=== PATIENT | female | born 1970 | race African-American/Black ===

== ENCOUNTER 2019-02-06 20:28 | Observation (INO) ==
[2019-02-07 01:10] LABS: BASO# 0.05 X1000 (0.0-0.2); BASO% 0.9 % (0.0-0.8); EOS# 0.08 X1000 (0.0-0.7); EOS% 1.5 % (0.0-10.0); HEMATOCRIT 40.7 % (37.0-47.0); HEMOGLOBIN 13.1 g/dL (12.0-16.0); LYMPH# 2.42 X1000 (1.2-3.4); LYMPH% 44.2 % (20.5-51.1); MCH 27.8 PG (27-31); MCHC 32.2 g/dL (33-37); MCV 86.4 FL (81-99); MONO# 0.37 X1000 (0.11-0.59); MONO% 6.8 % (1.7-9.3); MPV 10.1 FL (7.4-10.4); NEUT# 2.56 X1000 (1.4-6.5); NEUT% 46.6 % (42.2-75.2); PLT 317 X1000 (130-400); RBC 4.71 XMIL (4.2-5.4); WBC 5.48 X1000 (4.8-10.8)
[2019-02-07 01:34] LABS: AGAP 1; ALB/GLOB RATIO 1.3; ALBUMIN 4.7 g/dL (3.5-5.0); ALKALINE PHOSPHATASE 60 U/L (32-104); BUN 13 mg/dL (8-22); CALCIUM 8.9 mg/dL (8.8-10.2); CHLORIDE 101 mmol/L (98-107); COSMO 275; CREATININE 0.7 mg/dL (0.5-0.9); ESTIMATED GFR > 60; GLUCOSE 110 mg/dL (70-104); GOT 12 U/L (10-30); GPT 10 U/L (10-36); LIPASE 51 U/L (13-60); POTASSIUM 3.6 mmol/L (3.5-5.1); SODIUM 137 mmol/L (136-145); TCO2 35 mmol/L (25-35); TOTAL BILIRUBIN 0.32 mg/dL (0.20-1.00); TOTAL PROTEIN 8.2 g/dL (6.3-8.3)
--- NOTE | 2019-02-07 05:32 | PROVIDER DOCUMENTATION ---
This chart was entered by Mason Jones Scribe, acting as scribe for Aleksey Meyers MD. HPI-Abdominal Pain/GI Problem - General Chief Complaint: General Adult Stated Complaint: ABD PAIN Time Seen by Provider: 02/06/19 22:53 Source: patient Allergies/Adverse Reactions: Patient Allergies Allergy/AdvReac Type Severity Reaction Status Date / Time adhesive tape AdvReac Unknown Verified 02/06/19 21:40 - History of Present Illness-ABD Nature of Presenting Problems: Pt is a 48 y/o F presents to the ED with abdominal pain after going to an urgent care and brings in a CD of xray with her. She says she was sent from the urgent care for fa cough. Pt denies N/V/D. Abdominal Pain Onset Location: reports: generalized abdomen Pain Radiation: reports: no radiation Quality of Pain: reports: aching Severity in ED: reports: mild Onset/Duration: reports: this morning Timing: reports: still present (chronic) Activities at Onset: reports: none Exposure to sick contacts?: No Associated Symptoms: reports: cough. denies: diarrhea, fever/chills, shortness of breath, vomiting, trouble walking Review of Systems - Adult - REVIEW OF SYSTEMS - ADULT Constitutional: denies: chills, fever Eyes: reports: no symptoms reported Ears, Nose, Mouth & Throat: reports: no symptoms reported Cardiovascular: denies: edema, palpitations Respiratory: reports: cough. denies: shortness of breath, wheezing Gastrointestinal: reports: abdominal pain. denies: constipation, diarrhea, nausea, vomiting Genitourinary: reports: no symptoms reported Musculoskeletal: reports: no symptoms reported Integumentary: reports: no symptoms reported Neurological: reports: no symptoms reported Psychiatric: reports: no symptoms reported Endocrine: reports: no symptoms reported Hematologic/Lymphatic: reports: no symptoms reported Allergic/Immunologic: reports: no symptoms reported All Other Systems: Reviewed and Negative Past History - Adult - PAST MEDICAL HISTORY-ADULT Review of Records: reports: Old Records Reviewed, Nursing Assessment Review, Medications Reviewed - SOCIAL HISTORY Smoking: non-smoker Living Situation: family Physical Exam-General - PHYSICAL EXAM-ADULT Initial Vital Signs Reviewed: Yes - CONSTITUTIONAL General Appearance: alert, no apparent distress - EYES Eyes: PERRL/EOMI, pink conjunctivae - HEAD, EARS, NOSE, MOUTH & THROAT HENMT: moist mucous membranes, normal ENT inspection - NECK Neck: non-tender, full range of motion, supple, normal inspection - RESPIRATORY Respiratory: lungs clear, normal breath sounds, no pleuratic chest pain, no respiratory distress - CARDIOVASCULAR Cardiovascular: normal peripheral pulses, regular rate, rhythm - GASTROINTESTINAL (ABDOMEN) Abdominal Exam: normal bowel sounds, non tender, soft - MUSCULOSKELETAL Back Exam: normal inspection, no CVA tenderness, no vertebral tenderness Extremity: normal range of motion, non-tender, normal gait, normal inspection - SKIN Integumentary: normal color, normal turgor, warm/dry - NEUROLOGIC Neurologic: grossly normal, no motor/sensory deficits - PSYCHIATRIC Psych/Mental Status: normal mood/affect, normal thought content, normal thought process, oriented x 3 Progress - PLAN OF CARE/RESULTS Progress/Plan/Lab Results: Vital Signs - 8 hr 02/06/19 20:40 Temperature 97.7 F Pulse Rate 72 Respiratory Rate 14 Blood Pressure 182/97 O2 Sat by Pulse Oximetry 100 Orders Category Date Time Status cxr [CHEST-2 VIEWS] [RAD] Stat Exams 02/06/19 23:[address] shows distention of large colon with narrowing at sigmoid colon, will admit Result Diagrams: 02/07/19 00:57 02/07/19 00:57 Departure - Departure Date of Disposition Decision: 02/07/19 Time of Disposition Decision: 05:30 DIAGNOSIS: Large bowel obstruction Disposition: ADMITTED INPATIENT 09 Certified Medical Emergency: Emergent Condition: Stable Referrals and Follow-Ups: Mariposa Bejarano MD [Primary Care Provider] - - Critical Care Note This patient required my direct & personal management of CC.: No Attestation - Physician/ NIRANJAN Attestation Patient care was provided by Advanced Practice Provider:: No The physician spent face to face time with patient:: Yes Advanced Practice Provider documentation review:: Supervising physician onsite and consulted in the evaluation and care of this patient. The physician did have a face to face encounter with the patient. This chart was documented by the indicated scribe, (Mason Jones Scribe) and accurately reflects the services I performed and decisions made by me, Aleksey Meyers MD, as attested by the provider's signature.
[2019-02-07] MEDS ORDERED: NS + KCL 20 MEQ 1,000 ML IV ONE (05:56)
[2019-02-07] MEDS ORDERED: DULCOLAX PR ONE (05:56)
[2019-02-07] MEDS ORDERED: CITRATE OF MAGNESIA PO ONE (05:56)
[2019-02-07] MEDS ORDERED: PERICOLACE PO ONE (05:57)
--- NOTE | 2019-02-07 06:17 | Diag Imaging Result Doc PS360 ---
CHEST-2 VIEWS - 02/06/2019 INDICATION: cough, abnormal finding on cxr at urgent care [facility] COMPARISON: None FINDINGS: The heart size is borderline enlarged. Pulmonary vascularity is normal. Tiny calcified granulomas in the left upper lobe and left hilum. No focal infiltrates, pneumothorax, or pleural effusion. IMPRESSION: Borderline enlargement of the heart shadow. Electronically signed by Noah Rodriguez 02/07/2019 6:14 AM
[2019-02-07] MEDS ORDERED: TYLENOL PO PRN (07:04)
[2019-02-07] MEDS ORDERED: ZOFRAN IV PRN (07:04)
--- NOTE | 2019-02-07 08:17 | Diag Imaging Result Doc PS360 ---
EXAM: CT ABD/PELVIS W/PO AND IV CON INDICATION: r/o SBO, dilated loops of bowl on CXR TECHNIQUE: This exam was performed using automated exposure control, adjustment of mA or kV according to patient size, and/or use of iterative reconstruction technique. COMPARISON: None. FINDINGS: There is a small calcified granuloma at the left lung base. There is a 2.3 x 1.6 cm heterogeneous hypoechoic focus involving the right hepatic lobe abutting the falciform ligament, very likely focal fatty infiltration at this is a common place for this. There are a few tiny hypodensities involving the right hepatic lobe that are nonspecific and too small to characterize but probably represent tiny cysts. The gallbladder, spleen, pancreas, and adrenal glands are unremarkable. The kidneys and urinary bladder are unremarkable. There is evidence of a prior hysterectomy. The appendix is normal. There is significant gaseous distention of the proximal and mid sigmoid colon and there is some distention of the distal descending colon. There is a transition point along the left pelvic sidewall where there is a long segment of collapsed sigmoid colon (see image 89, series 2). Long segment stricture or even sigmoid volvulus cannot completely be excluded. There is a small amount of stool in the rectum. There is abundant stool in the right colon. There is no evidence of small bowel obstruction. No focal bowel wall thickening is identified. The remainder of the GI tract is essentially unremarkable. IMPRESSION: 1.Significant gaseous distention mainly involving the proximal sigmoid colon with a transition in the pelvis where there is collapse of the sigmoid colon distal to this. Long segment stricture or even sigmoid volvulus cannot completely be excluded. 2.Other incidental/nonacute findings detailed above. Electronically signed by Lj Wolfe 02/07/2019 8:15 AM
--- NOTE | 2019-02-07 08:48 | HISTORY AND PHYSICAL ---
ADDENDUM HISTORY OF PRESENT ILLNESS: Ms. Sinai Ren went to the urgent care to check persistent cough and upper respiratory symptoms 5 weeks after [place] the flu. On arrival there they did a chest film and they noticed she had distended loops of bowel and sent her to the ER. Repeat chest film confirmed the same thing. CT scan showed dilated loops of bowel with lots of stool and possible sigmoid stricture. She is being admitted for evaluation of possible sigmoid stricture. Her potassium is 3.6 and she will be given fluids with 20 mEq of potassium to decrease risk of ileus. She denies any recent use of any new medication. She used to be on losartan/hydrochlorothiazide, but has been off this for several weeks. We are going to give her a Dulcolax suppository and some upper GI laxatives to induce defecation so that she may undergo at least a flexible sigmoidoscopy for now. We will consult GI to see her. Otherwise her vital signs are stable. Abdomen does feel mildly distended in the lower part, but no peritoneal signs, mass, or organomegaly. Bowel sounds surprisingly are normal. Rest of her exam is benign. cc: Terra García MD
--- NOTE | 2019-02-07 10:26 | HISTORY AND PHYSICAL ---
PATIENT'S PRIMARY CARE PROVIDER: Mariposa Bejarano MD. CHIEF COMPLAINT: Abdominal pain. HISTORY OF PRESENT ILLNESS: Ms. Ren is a 48-year-old -[place] female, who states that she presented to urgent care earlier in the day on 02/06/2019 due to a persistent cough that she has had since having the flu about 5 weeks ago. She states that when they performed her chest x- ray that they did see an abnormal finding and sent her to the ER for further evaluation. The patient states that she has not had any fever, body aches, or chills, though a couple of nights ago did have an episode of diaphoresis, though she reported during this episode she did not feel flushed or chilled. Denies any chest pain. She does report that she gets shortness of breath of coughing episodes though had not had any other shortness of breath otherwise. She has been reporting that for quite some time now she has been having abdominal bloating. The patient states she does have frequent problems with constipation. She states that since yesterday she has been having intermittent abdominal cramping. She states that actually rubbing her belly makes the pain better though she has not noticed anything that really made it worse. She has had some occasional nausea though denies any vomiting. She reports her last bowel movement was yesterday, though it was not a very good bowel movement. Though, she denied having to strain to have a bowel movement. She denies any hematochezia or melena. She denies any other symptoms at this time. She also denies any previous history of having bowel obstruction or any other abdominal surgeries except for her x2 and her hysterectomy. The patient did report that she had a colonoscopy approximately 5 years ago and was not made aware of any abnormal finding. On evaluation in the ER, the patient's abdomen did appear distended. She did have some generalized tenderness though was reporting that her abdominal pain and cramping was more in the left lower quadrant area. Bowel sounds were normoactive. They did perform a chest x-ray, which did show borderline enlargement of the heart shadow and there were some tiny calcified granulomas in the left upper lobe and hilum, though no infiltrates, pneumothorax, or pleural effusion were noted. Though on x-ray as well you could see some dilated loops of the bowel. Given this, they did perform a CT abdomen and pelvis with contrast that showed that she had multiple air-filled loops of distended large bowel involving the transverse, descending, and proximal sigmoid colon. There was a focal long segment of decompressed area of the sigmoid colon along with pelvic side wall, stricture of the sigmoid colon may be present in this region. Given these findings, the patient has been placed for admission for further treatment and evaluation. REVIEW OF SYSTEMS: A 14-point review of systems was conducted with the patient and all were negative except for pertinent positives mentioned above in the HPI. PAST MEDICAL HISTORY: 1. Hypertension, though the patient states at this time she is not taking medication for this. Her previous medication has been recalled at this time, though she states she only took this as needed. 2. Anxiety. 3. Frequent constipation. PAST SURGICAL HISTORY: 1. Hysterectomy. 2. x2. SOCIAL HISTORY: The patient denies any tobacco, alcohol, or illicit drug use. FAMILY HISTORY: Positive for her father having a history of diabetes mellitus, and her mother having a history of hypertension and high cholesterol. Her maternal grandmother did have a history of ovarian cancer. ALLERGIES: The patient has allergies to adhesive tape. HOME MEDICATIONS: We are awaiting the patient's complete home medication list to be updated and verified, though, at this time she states she takes a losartan combination medicine which may be possibly losartan/HCTZ and estradiol. Once her list has been obtain, we will address her home medications. DIAGNOSTIC DATA/LABORATORY RESULTS: White blood cell count is 5.48, hemoglobin 13.1, hematocrit 40.7, platelet count is 317. Sodium is 137, potassium 3.6, chloride 101, serum bicarb of 35, BUN 13, creatinine 0.7, GFR greater than 60, glucose 110, calcium 8.9. Liver function tests are within normal limits. Lipase 51, plasma lactate 0.5. PHYSICAL EXAMINATION: VITAL SIGNS: Heart rate 62, respirations 17, blood pressure 137/88, oxygen saturation is 100% on room air. GENERAL: Ms. Ren is a pleasant 48-year-old -[place] female, who is resting on the ER stretcher. She was in no acute distress. She was awake, alert, and able to answer questions appropriately. HEENT: Head is atraumatic, normocephalic. Pupils are equal, round, reactive to light, were 3 mm bilaterally and brisk. Oral mucosa is moist. Oropharynx is clear. NECK: Supple, trachea midline. CARDIOVASCULAR: The patient has normal S1 and S2, no murmurs, gallops, or rubs appreciated, with a regular rate and rhythm. PULMONARY: The patient has symmetrical chest expansion bilaterally. Lung sounds were clear to auscultation in bilateral full marshall. ABDOMEN: Soft, but does appear distended. She had some generalized tenderness noted upon palpation, though she reports that her worst pain is in the left lower quadrant. Bowel sounds are present and were normoactive. INTEGUMENTARY: The patient's skin color is normal for her race and dry and intact. EXTREMITIES: No cyanosis, clubbing, or edema noted. Pulse, motor, and sensory were intact in all extremities. Radial and pedal pulses were 2+ bilaterally. NEUROLOGICAL: The patient is alert and oriented to person, place, time, and situation. There were no focal neurological deficits noted. ASSESSMENT AND PLAN: 1. Colonic ileus. Given this as well as the patient does have constipation noted, we will go ahead and start her with some magnesium citrate, Doris-Colace, as well as a Dulcolax suppository. She will be n.p.o. at this time until she is evaluated by Gastroenterology. We have placed a consult with them and will await their evaluation and further recommendations for management. We have also gone ahead and placed her with some gentle fluid hydration with normal saline with 20 KCl at a rate of 100 mL/hour, and we are awaiting a magnesium level as well. Will continue to follow. 2. History of hypertension. At this time, the patient's blood pressure is within normal limits. We will continue to monitor this and implement antihypertensives as necessary. 3. Deep venous thrombosis prophylaxis will be provided with sequential compression devices. The patient has been placed on the Medical floor with telemetry. She will have vital signs q.8 hours with strict intake and output. Further orders and recommendations pending hospital course, diagnostic studies, and physician evaluation. Dictated by DEVANG Patel for Terra García MD cc: Terra García MD
[2019-02-07] MEDS ORDERED: DESYREL PO PRN (15:39)
--- NOTE | 2019-02-07 17:10 | PROGRESS NOTE ---
DATE: 02/07/2019 INTERVAL HISTORY: Ms. Ren was admitted for constipation and CT scan of the abdomen and pelvis suggestive of possible sigmoid stricture. She has had liquidy bowel movements since coming to the hospital. She has been receiving her stool softeners, including bisacodyl suppository, magnesium citrate and senna. Gastroenterology has been consulted as well. SUBJECTIVE: The patient denies any known rectal trauma. She denies any colonoscopy in the past or known history of cancer or family history of cancer. VITALS: Currently: Temperature 98.9, pulse 68, blood pressure 135/78, respiratory rate 18, 100% saturation on room air. PHYSICAL EXAMINATION: General: Does not appear in any acute distress. Oral cavity is moist. Lungs: Air entry bilaterally equal. No wheeze, rhonchi, crackles. Cardiovascular: S1, S2 normal. No murmur, rub or gallop. Abdomen: Soft, nontender, except mild discomfort in the left lower quadrant. Active bowel sounds. No lower extremity edema. LABS: Unremarkable with normal hemoglobin, hematocrit, platelet and normal kidney function. ASSESSMENT AND PLAN: 1. Severe constipation. Follow up with TSH to rule out hypothyroidism. 2. Colonic ileus. The patient has had a bowel movement .We will follow up with repeat abdominal x-ray. Accordingly, will appreciate Gastroenterology recommendation about need for flexible sigmoidoscopy to evaluate the stricture further. 3. History of insomnia. Continue home trazodone. 4. History of total hysterectomy. I will hold off adding estrogen at the moment. We will add back as tolerated. 5. Disposition: Patient remains inside the hospital as we await further GI recommendation and possible scope. Plan of care discussed with her. All of her questions have been answered. cc: Harpal Tello MD [facility]
[2019-02-07] MEDS ORDERED: PERICOLACE PO SCH (21:00)
--- NOTE | 2019-02-07 21:34 | GASTROENTEROLOGY CONSULTATION ---
DATE: 02/07/2019 CONSULTING PHYSICIAN: Dr. Tello. REASON FOR CONSULT: Constipation. HISTORY OF PRESENT ILLNESS: This is a 48-year-old female who has history of hypertension and has been in good health. Recently, she had contracted flu with upper respiratory symptoms. Most of her symptoms resolved except for cough. She was evaluated at a local urgent care for her cough and apparently had some imaging done which showed dilated or distended bowels. She was sent to the emergency room for further evaluation and treatment. The patient had a CT scan of the abdomen done which showed dilated colon where there was a question of possible stricture. She was also found to have low potassium, albeit lower normal. She was given potassium, and she has received a good bit of laxative since admission. Since admission, she had 3 bowel movements and she feels better. She has not had any abdominal pain or abdominal cramps. She is feeling hungry and wants to eat. She denied any fever or chills. Has not had any headache or dizziness. Her cough, although not completely gone, has improved. She denies any chest pain, shortness of breath, or palpitations. Has had no abdominal cramps or abdominal pain. She is resting comfortably. When she had 3 bowel movements in the hospital, she did not notice any blood or mucus in her stool. She has never had endoscopic evaluation of her bowels. PAST MEDICAL HISTORY: Nothing significant except for hypertension and anxiety. PAST SURGERY: She has had hysterectomy and C-sections. MEDICATIONS: Prior to hospitalization, she was on trazodone and estradiol. ALLERGIES: No known drug allergies. SOCIAL HISTORY: She is and has 3 children. She does not smoke. Does not drink. Does not use illicit drugs. FAMILY HISTORY: No history of colon cancer, stomach cancer, pancreatic cancer, kidney disease, or colitis in the family. REVIEW OF SYSTEMS: As per HPI as above. PHYSICAL EXAMINATION: General appearance: A very pleasant, female. She is lying in bed. She is conscious, alert. Appeared to be in no distress. Vital signs: Temperature 98.4 degrees, pulse is 68 per minute, breathing 18, blood pressure was 138/80. HEENT: Head is atraumatic, normocephalic. Eyes: Conjunctivae are normal. Sclerae anicteric. Nose: Nares are patent, no discharge noted. Mouth: Buccal mucosa is moist. Throat is normal. Neck: Supple. No lymphadenopathy or thyromegaly noted. Chest: Bilaterally symmetrical. It is moving with respirations. Breath sounds audible bilaterally. No rhonchi or crepitations could be heard. Heart: S1, S2 audible. No murmur could be appreciated. Abdomen: Full and soft. It is nontender. I could not appreciate any mass or visceromegaly, and the abdomen did not appear to be distended. Rectal exam: Deferred at this time. Extremities: No pedal edema, cyanosis, or clubbing was noted. Central nervous system: Grossly intact. No sensory or motor deficit noted. LABORATORIES: Reviewed, which showed normal CBC and CMP except potassium was on the lower side of normal that is 3.6. IMAGING STUDIES: CT scan of the abdomen and pelvis was reviewed, which showed dilated loops of large bowel and gaseous distention. She did have some stool in the right side of the colon. There was question of possible stricture or volvulus involving the distal colon. IMPRESSION: Constipation with distended colon. Since admission, she has had 3 large bowel movements and she feels better. She has not had any abdominal pain or abdominal cramps. I would continue her on laxatives. I have started her on Doris-Colace 2 every night. Start her on a full liquid diet and follow. In the meantime, I will get an x-ray abdomen with Gastrografin enema to evaluate the distal colon which may have a stricture and that may require endoscopic evaluation. Endoscopy at this point would be difficult because of the inability to prep the colon, and if it is a volvulus, the Gastrografin enema will resolve the volvulus as well. Depending on response of the imaging studies, further plans will be made. I will follow with you. cc: MD Mariposa Perez MD
[2019-02-08] MEDS ORDERED: LOVENOX SUBQ SCH (09:00)
--- NOTE | 2019-02-08 12:11 | Diag Imaging Result Doc PS360 ---
EXAM: BARIUM ENEMA 02/07/2019 HISTORY: Stricture or valvulus colon TECHNIQUE: Left water-soluble barium enema, 12 images, two minutes 11 seconds fluoroscopy time, 2953.3 cGy. COMMENT: There is free retrograde flow of water-soluble contrast into the hepatic flexure of the colon. There is a large amount of stool present particularly in the descending and transverse colon. Postevacuation image demonstrates some contrast in the ascending colon where there is also retained stool. The sigmoid colon is quite long, extending almost from the epigastrium to the pelvis. There is no evidence of volvulus however. IMPRESSION: No evidence of obstruction. Constipation. The possibility of polypoid filling defects cannot be excluded on the basis of this study given the retained stool. Electronically signed by Tani Nair 02/08/2019 12:08 PM
[2019-02-08 13:23] VITALS: BP 132/80
--- NOTE | 2019-02-08 15:47 | GASTROENTEROLOGY PROGRESS NOTE ---
DATE: 02/08/2019 SUBJECTIVE: Patient states she is feeling better. She is having bowel movements. She had a barium enema that showed no evidence of obstruction, constipation, possibility of polypoid filling defects could not be excluded on the basis of the study given the retained stool. It was noted that the sigmoid colon was quite long, extending almost from the epigastric to the pelvis. There was no evidence of volvulus. There was large amount of stool present in the descending and transverse colon. OBJECTIVE: Vital Signs: Temperature 98.2 degrees, pulse 60, respirations 16, blood pressure 132/80. General: Patient is awake, alert, no acute distress. LABORATORY: Hematology: WBC 5.48, hemoglobin 13.1, hematocrit 40.7, MCV 86.4, platelet 317,000. Chemistry: Sodium 137, potassium 3.6, chloride 101, CO2 35, BUN 13, creatinine 0.7, glucose 110, total bilirubin 0.32, AST 12, ALT 10, alkaline phosphatase 60. ASSESSMENT: 1. Severe constipation. 2. No evidence of volvulus or bowel obstruction. PLAN: Recommend laxative regimen. Recommend patient have a colonoscopy which can be done as an outpatient. As far as GI is concerned, she can be discharged home on laxative regimen and I have given her our contact information to call and schedule an outpatient colonoscopy. I have discussed this case with Dr. Mata. Further plans will be made as needed. Dictated by DEVANG Jiang for Brian Mata MD cc: DEVANG Parson MD
--- NOTE | 2019-02-08 23:17 | DISCHARGE SUMMARY ---
ADMISSION DATE: 02/06/2019 DISCHARGE DATE: 02/08/2019 DISCHARGE DIAGNOSES: 1. Severe constipation. 2. Colonic ileus. 3. Suspected sigmoid stricture; however, with negative barium enema. 4. History of insomnia. CONSULTATION DURING HOSPITALIZATION: Rn Cvor, Dr. Mata. IMAGING: Chest x-ray on admission had borderline enlargement of heart shadow without any acute abnormalities. Abdomen and pelvis CT performed to rule out small-bowel obstruction, as there were dilated loops of bowel on the chest x-ray suggested significant gastric distention involving the proximal sigmoid colon with a transition in the pelvis, where there is a collapse of the sigmoid colon distal to this. There was long segment of stricture or a sigmoid volvulus cannot be completely excluded. Barium enema performed had suggested no evidence of obstruction. There was constipation. The possibility of polypoid filling defect cannot be excluded on the basis of this study given the retained stool. VITALS: At the time of discharge, temperature 98.2 degrees, pulse 60, respiratory rate 16, blood pressure 130/80, saturating 100% on room air. PHYSICAL EXAMINATION: Patient did not appear in any acute distress. No pallor, cyanosis, clubbing or icterus. Lungs: Air entry bilaterally equal. No wheeze or crackles. Cardiovascular: S1, S2 normal. No murmur or gallop. Abdomen: Soft, nontender. Active bowel sounds. Extremities: No lower extremity edema. Neurologic: Alert and orient x3. LABS: During hospitalization, she did not have leukocytosis, hemoglobin of 13.1, platelet count of 317,000. Normal electrolytes. Creatinine of 0.7. HOSPITAL COURSE SUMMARY: Ms. Ren is a 48-year-old woman who had initially gone to Urgent Care to check for her persistent cough and upper respiratory symptoms after an episode of flu that she had sustained 5 weeks ago. The Urgent Care had ordered a chest x-ray which did not detect any acute pulmonology pathology. However, it was detected that she had multiple loops of distended bowel and so she was sent to the emergency room, where she underwent CT scan of the abdomen and pelvis. CT scan was performed with p.o. and IV contrast, which had detected gaseous distention involving the proximal sigmoid colon with transition in the pelvis, where there was collapse of sigmoid colon distal to that and there was a concern for stricture. There was also a lot of constipation. The patient was started on aggressive bowel regimen and she has had multiple bowel movements. GI was consulted and a barium enema was performed, which however, did not detect any significant structural abnormality, though the study was limited considering her stool. The patient was having adequate bowel movement and GI had decided not to pursue any further inpatient intervention. The patient was discharged home on stool softeners and was advised to follow up with facilities assistant as an outpatient for getting a colonoscopy. The patient was in agreement with the plan. Plan of care were discussed with her, all of her questions have been answered. TIME SPENT: Less than 30 minutes were spent in discharging the patient. cc: Harpal Tello MD MTDD
== END 2019-02-08 18:18 | disposition home or self-care (01) ==
LOC: ED 20:28 → INTOOBSV 20:29 → 4N 02-07 00:01 → SUATTDRO 02-07 08:12
PROVIDERS: ATTEND Internal Medicine
CPT/HCPCS: 71020; 71046; 74177; 74270; 80053; 83605; 83690; 83735; 84443; 85025; 96365; 96366; 99285; A9270; J1650; J3480; Q9958; Q9967